=== PATIENT | male | born 1960 | race African-American/Black ===

== ENCOUNTER 2018-01-17 08:17 | Emergency (ER) | payer OTHER ==
[2018-01-17] MEDS ORDERED: DEXAMETHASONE SOD PHOS INJ 10 MG/1 ML VIAL IV ONE (09:38)
[2018-01-17] MEDS ORDERED: KETOROLAC TROMETHAMINE INJ/PF 30 MG/1 ML SDV IV ONE (09:38)
[2018-01-17] MEDS ORDERED: CLINDAMYCIN 900 MG/D5W RTU 900 MG/50 ML RTUPB IV ONE (09:38)
--- NOTE | 2018-01-17 09:51 | ER Document Report ---
ED Oral Problem - General Chief Complaint: Toothache Stated Complaint: JAW PAIN Time Seen by Provider: 01/17/18 09:38 Mode of Arrival: Ambulatory Information source: Patient Notes: 57-year-old male presents to ED for complaint of left lower jaw pain and swelling of the face. He is alert and oriented speaking freely the whole left side of his face is swollen and firm. He denies any fevers chills night sweats. He states that the pain has been for week then he said maybe 3 or 4 weeks and says it has been for a long time when asked his medical history he states that he does not go to doctors so he does not know his medical history. He states he smokes 4 cigarettes a day. He is alert and oriented respirations regular and unlabored. His throat is patent. TRAVEL OUTSIDE OF THE [place] IN LAST 30 DAYS: No - HPI Patient complains to provider of: Swelling of face, Swelling of jaw, Toothache Onset: Other - Several weeks Onset: Gradual Quality of pain: Sharp, Stabbing, Throbbing Severity: Severe Pain Level: 5 Swollen jaw/face: Moderate Associated symptoms: Jaw pain, Toothache, Other - Swollen outside of his gum between his gum and his cheek and the inside of his jawbone Worsened by: Heat Relieved by: Nothing Similar symptoms previously: Yes Recently seen / treated by doctor/dentist: No - Related Data Allergies/Adverse Reactions: No Known Allergies Allergy (Verified 01/17/18 08:17) Past Medical History - General Information source: Patient - Social History Smoking Status: Current Every Day Smoker Cigarette use (# per day): Yes - 4 cigarettes a day Chew tobacco use (# tins/day): No Smoking Education Provided: Yes - 4 minutes Lives with: Family Family History: Reviewed & Not Pertinent Patient has suicidal ideation: No Patient has homicidal ideation: No Review of Systems - Review of Systems Constitutional: No symptoms reported EENT: Dental problem Cardiovascular: No symptoms reported Respiratory: No symptoms reported Gastrointestinal: No symptoms reported Genitourinary: No symptoms reported Male Genitourinary: No symptoms reported Musculoskeletal: No symptoms reported Skin: No symptoms reported Hematologic/Lymphatic: No symptoms reported Neurological/Psychological: No symptoms reported Physical Exam - Vital signs Vitals: Temp Pulse Resp BP Pulse Ox 98.3 F 99 18 126/77 H 99 01/17/18 08:26 01/17/18 08:26 01/17/18 08:26 01/17/18 08:26 01/17/18 08:26 Interpretation: Normal - General General appearance: Appears well, Alert - HEENT Head: Normocephalic, Atraumatic Eyes: Normal Pupils: PERRL Ears: Normal External canal: Normal Tympanic membrane: Normal Sinus: Normal Nasal: Normal Mouth/Lips: Caries Mucous membranes: Normal Teeth diagram: 1 - Very swollen inflamed white coated extremely tender with the whole left side of his face firm and tender when he first came in. The swelling was much less before he was discharged his pain was down to a 1 Pharynx: Normal Neck: Anterior cervical chain - Respiratory Respiratory status: No respiratory distress Chest status: Nontender Breath sounds: Normal Chest palpation: Normal - Cardiovascular Rhythm: Regular Heart sounds: Normal auscultation Murmur: No - Abdominal Inspection: Normal Distension: No distension Bowel sounds: Normal Tenderness: Nontender Organomegaly: No organomegaly - Back Back: Normal, Nontender - Extremities General upper extremity: Normal inspection, Nontender, Normal color, Normal ROM , Normal temperature General lower extremity: Normal inspection, Nontender, Normal color, Normal ROM , Normal temperature, Normal weight bearing. No: Robert's sign - Neurological Neuro grossly intact: Yes Cognition: Normal Orientation: AAOx4 Jessica Coma Scale Eye Opening: Spontaneous Jessica Coma Scale Verbal: Oriented Jessica Coma Scale Motor: Obeys Commands Jessica Coma Scale Total: 15 Speech: Normal Motor strength normal: LUE, RUE, LLE, RLE Sensory: Normal - Psychological Associated symptoms: Normal affect, Normal mood - Skin Skin Temperature: Warm Skin Moisture: Dry Skin Color: Normal Course - Re-evaluation Re-evalutation: 01/17/18 20:[address] discussed with Dr. Neumann. Patient was feeling much better at time of discharge he was discharged home with prescription for clindamycin and ibuprofen. He was treated for with IV clindamycin dexamethasone and Toradol in the emergency room. Patient was given strict instructions of following up with a dentist and taken the clindamycin as instructed until completed due to the severity of his infection. Patient and verbalized understanding and agreement with treatment plan. - Vital Signs Vital signs: Temp Pulse Resp BP Pulse Ox 97.6 F 81 18 118/83 99 01/17/18 12:24 01/17/18 12:24 01/17/18 12:24 01/17/18 12:24 01/17/18 12:24 - Laboratory Result Diagrams: 01/17/18 09:44 01/17/18 09:44 Laboratory results interpreted by me: 01/17/18 01/17/18 09:44 09:44 Hgb 13.4 L ESR 50 H C-Reactive Protein 46.4 H - Diagnostic Test Radiology reviewed: Image reviewed, Reports reviewed Discharge - Discharge Clinical Impression: Pain due to dental caries, Facial swelling Condition: Stable Disposition: HOME, SELF-CARE Instructions: Dentist, Use of [id number]-[id number] Ibuprofen ([facility]) Additional Instructions: TOOTHACHE: Your pain is due to dental decay. The tooth must be repaired in order for you to feel better. You will, therefore, be referred to a dentist. We do not have dentists on the staff at [facility]. Severe swelling or drainage around a tooth usually means a dental abscess. This also requires evaluation and treatment by the dentist, but antibiotics may be prescribed while awaiting dental treatment. You should be rechecked immediately if you develop major swelling of the face, increasing pain, a lump in the jaw or gums, headache, difficulty swallowing, or fever. CLINDAMYCIN: You have been given a prescription for the antibiotic clindamycin. It is often prescribed for infections in the mouth, such as dental infections or abscesses, and for skin infections due to MRSA. It's important that you take all the medication, unless instructed otherwise by your physician. Failure to complete the entire course can result in relapse of your condition. Common side effects of antibiotics include nausea, intestinal cramping, or diarrhea. Women may develop vaginal yeast infections, and babies can get yeast (thrush) in the mouth following the use of antibiotics. Contact your physician if you develop significant side effects from this medication. Allergy to this antibiotic can result in hives, wheezing, faintness, or itching. If symptoms of allergy occur, stop the medication and call the doctor. STEROID MEDICATION: You have been given an injection of medicine of the cortisone/steroid class. This medication is used to control inflammation or allergy. It is often continued as a pill for a short period of time, until the acute process subsides. There are usually no side effects from short-term use of cortisone-like medications. Some persons feel an increased sense of well-being and are not sleepy at bedtime. Long-term use of cortisone medications is best avoided, unless required for a severe condition. If your condition does not remit, or relapses after the course of corticosteroid medication, you should consult your physician. STEROID MEDICATION: You have been given a medicine of the cortisone/steroid class. This medication is used to control inflammation or allergy. It is usually only given for a short period of time, until the acute process subsides. There are usually no side effects from short-term use of cortisone-like medications. Some persons feel an increased sense of well-being and are not sleepy at bedtime. Long-term use of cortisone medications is best avoided, unless required for a severe condition. If your condition does not remit, or relapses after the course of corticosteroid medication, you should consult your physician. Toradol Injection You have been given an injection of ketorolac tromethamine (Toradol). This is an excellent, safe drug for pain control. It also has potent antiinflammatory action. You should have significant pain relief within about one hour. Toradol is not addicting and is non-sedating. It does not interfere with driving or work. Call or return if you develop itching, hives, shortness of breath, or rash. FOLLOW-UP CARE: You have been referred for follow-up care to the dentists listed below. Call the dentists office for an appointment as you were instructed or within the next two days. If you experience worsening or a significant change in your symptoms, notify the physician immediately or return to the Emergency Department at any time for re-evaluation. [facility] [address] [place], [place] [facility] [address] [place] [address] [facility] [address] [facility] [address] [facility] [address] [email or web address] [address] [place] [address] Thursday- 8:00am to 5:00 pm Will see patients from other [facility]. Charges based on income and family size and accepts Medicare, Medicaid, and Insurances Will pull molars [facility], [facility] [address] Hours of Operation 8:00 am - 4:30 pm weekdays The following dental offices accept Medicaid: [facility] Dr. [address] Dr. Andrade Dr. Basilio Man Lang, [place], and [facility] oral surgery Dr. Last ([place]) Dr. Garcia ([place]) [facility] Drs. Mary ([place]) Dr. Boyle ([place]) [facility] Dr. Chicas ([place]) Drs. Marrero and ([place]) Medicaid Care Line Prescriptions: Ibuprofen [Ibu] 800 mg PO Q8HP PRN #20 tablet PRN Reason: Clindamycin HCl 300 mg PO Q6 #40 capsule Prednisone [Deltasone 20 mg Tablet] 3 tab PO DAILY 5 Days tablet Forms: Elevated Blood Pressure, Smoking Cessation Education, Return to Work
[2018-01-17 09:57] LABS: ABSOLUTE BASOPHILS # (AUTO) 0.1 10^3/uL (0.0-0.2); ABSOLUTE EOSINOPHILS # (AUTO) 0.2 10^3/uL (0.0-0.6); ABSOLUTE LYMPHOCYTES (AUTO) 2.1 10^3/uL (0.5-4.7); ABSOLUTE MONOCYTES (AUTO) 1.1 10^3/uL (0.1-1.4); ABSOLUTE NEUT (AUTO) 5.4 10^3/uL (1.7-8.2); BASOPHILS % (AUTO) 1.2 % (0-2); EOSINOPHILS % (AUTO) 2.8 % (0-6); HEMATOCRIT 40.1 % (37.9-51.0); HEMOGLOBIN 13.4 g/dL (13.5-17.0); LYMPHOCYTES % (AUTO) 23.6 % (13-45); MEAN CORPUSCULAR HGB CONC 33.4 g/dL (32.0-36.0); MEAN CORPUSCULAR VOLUME 87 fl (80-97); MONOCYTES % (AUTO) 12.3 % (3-13); PLATELET COUNT 299 10^3/uL (150-450); RED BLOOD COUNT 4.62 10^6/uL (4.35-5.55); RED CELL DISTRIBUTION WIDTH 13.6 % (11.5-14.0); SEGMENTED NEUTROPHILS % (AUTO) 60.1 % (42-78); TOTAL CELLS COUNTED % (AUTO) 100 %; WHITE BLOOD COUNT 8.9 10^3/uL (4.0-10.5)
[2018-01-17 10:12] LABS: ALANINE AMINOTRANSFERASE 24 U/L (21-72); ALBUMIN 3.8 g/dL (3.5-5.0); ALKALINE PHOSPHATASE 89 U/L (38-126); ANION GAP 11 (5-19); ASPARTATE AMINO TRANSFERASE 38 U/L (17-59); BILIRUBIN,DIRECT 0.2 mg/dL (0.0-0.4); BILIRUBIN,TOTAL 0.8 mg/dL (0.2-1.3); BLOOD UREA NITROGEN 14 mg/dL (7-20); C-REACTIVE PROTEIN 46.4 mg/L (<10.0); CALCIUM 9.3 mg/dL (8.4-10.2); CARBON DIOXIDE 27 mmol/L (22-30); CHLORIDE 106 mmol/L (98-107); GLUCOSE 100 mg/dL (75-110); POTASSIUM 4.5 mmol/L (3.6-5.0); SODIUM 143.7 mmol/L (137-145)
[2018-01-17 10:38] LABS: ERYTHROCYTE SEDIMENTATION RATE 50 mm/hr (0-20)
--- NOTE | 2018-01-17 11:22 | RADIOLOGY REPORT (SQ) ---
EXAM DESCRIPTION: CT SOFT TISSUE NECK WITH COMPLETED DATE/TIME: 01/17/2018 10:53 am REASON FOR STUDY: infected jaw decaded tooth COMPARISON: None. TECHNIQUE: Post IV contrasted scanning from skull base through lung apices with review of bone, soft tissue and lung windows. Reconstructed coronal and sagittal MPR images reviewed. All images stored on PACS. All CT scanners at this facility use dose modulation, iterative reconstruction, and/or weight based d osing when appropriate to reduce radiation dose to as low as reasonably achievable (ALARA). [facility]: Dose Right [facility]: CareDose [facility]: Dose Right [facility]: Teradose 4D [facility]: Place[employer]ise Media CONTRAST TYPE AND DOSE: contrast/concentration: Isovue 350.00 mg/ml; Total Contrast Delivered: 75.0 ml; Total Saline Delivered: 55.0 ml RENAL FUNCTION: GFR > 60. RADIATION DOSE: CT Rad equipment meets quality standard of care and radiation dose reduction techniq ues were employed. CTDIvol: 12.6 mGy. DLP: 404 mGy-cm. . LIMITATIONS: None. FINDINGS: SKULL BASE: Intact. MAJOR SALIVARY GLANDS: No solid or cystic masses. No inflammatory changes. LYMPHADENOPATHY: No adenopathy. MUCOSAL MASSES OR ASYMMETRY: No mucosal masses or asymmetry. LARYNX/CORDS: No abnormal findings. VASCULAR STRUCTURES: The major vessels are patent. LUNG APICES: Clear. BONES: Intact. THYROID: Normal size. No masses. PARANASAL SINUSES: Clear. OTHER: General poor dentition. Several lower molars with broken occlusal surfaces. Inflammation in the soft tissues of the left mandible. No soft tissue abscess. IMPRESSION: Poor dentition and periodontal disease with adjacent cellulitis. No soft tissue abscess . TECHNICAL DOCUMENTATION: JOB ID: [id number] Quality ID # [id number]: Final reports with documentation of one or more dose reduction techniques (e.g., Au tomated exposure control, adjustment of the mA and/or kV according to patient size, use of iterative reconstruction technique) 2010 [employer]- All Rights Reserved Reading location - IP/workstation name: [email or web address]
[2018-01-17 12:30] VITALS: BP 118/83
== END 2018-01-17 12:29 | disposition home or self-care (01) ==
LOC: ER 08:17
DX: K02.9 Dental caries, unspecified (principal); K08.89 Other specified disorders of teeth and supporting structures; R22.0 Localized swelling, mass and lump, head; R68.84 Jaw pain; F17.210 Nicotine dependence, cigarettes, uncomplicated
CPT/HCPCS: 36415; 85025; 85652; 86140; 80053; 70491; J1885; J1100